=== PATIENT | male | born 1975 | race Caucasian/White ===

== ENCOUNTER 2016-11-20 18:41 | Emergency (ER) | payer MEDICAID ==
[~2016-11-20] VITALS: Ht 213.4 cm; Wt 115.7 kg
[2016-11-20 18:58] VITALS: BP 99/79
== END 2016-11-20 19:11 | disposition left against medical advice (07) ==
LOC: ER 18:44
DX: Z53.21 Procedure and treatment not carried out due to patient leaving prior to being seen by health care provider (principal)
CPT/HCPCS: A4606; Z7610

== ENCOUNTER 2017-01-20 16:10 | Emergency (ER) | payer MEDICAID ==
[~2017-01-20] VITALS: Ht 213.4 cm; Wt 115.7 kg
[2017-01-20 16:10] VITALS: BP 95/67
== END 2017-01-20 16:44 | disposition home or self-care (01) ==
LOC: ER 16:11
DX: R09.81 Nasal congestion (principal); B34.9 Viral infection, unspecified
CPT/HCPCS: 99283; A4606; Z7610

== ENCOUNTER 2017-05-15 08:11 | Emergency (ER) | payer MEDICAID ==
[~2017-05-15] VITALS: Ht 213.4 cm; Wt 124.7 kg
[2017-05-15 08:16] VITALS: BP 144/77
== END 2017-05-15 08:31 | disposition home or self-care (01) ==
LOC: ER 08:13
DX: J02.9 Acute pharyngitis, unspecified (principal)
CPT/HCPCS: A4606; Z7610